=== PATIENT | male | born 1985 | race Caucasian/White ===

== ENCOUNTER 2022-12-31 20:47 | Emergency (ER) | payer OTHER ==
[2022-12-31 20:51] VITALS: BP 116/74; PULSE 82; RESP 18; TEMP 98.1; BMI 28.5
[2022-12-31] MEDS ORDERED: SODIUM CHLORIDE 1,000 ML IV STA (21:30)
[2022-12-31] MEDS ORDERED: METOCLOPRAMIDE HCL INJECTION 10 MG/2 ML VIAL IVPUSH ONE (21:35)
[2022-12-31] MEDS ORDERED: METOCLOPRAMIDE HCL INJECTION 10 MG/2 ML VIAL ONE (21:40)
[2022-12-31 21:51] LABS: BASO % 0.8 % (0-2.0); EOS % 0.8 % (0-4.5); HEMATOCRIT 42.1 % (35.4-49); HEMOGLOBIN 14.9 GM/dL (11.7-16.9); MCH 30.5 pg (25.7-33.7); MCHC 35.4 g/dl (32.0-35.9); MEAN CELL VOLUME 86.2 fl (80-96); MEAN PLT VOLUME 7.2 fl (7.5-11.1); NEUT % 53.4 % (42.8-82.8); PLATELET COUNT 189 10^3/uL (134-434); RBC 4.88 M/mm3 (4.00-5.60); RDW 12.5 % (11.9-15.9); WHITE BLOOD COUNT 3.9 K/mm3 (4.0-10.0)
[2022-12-31 22:16] LABS: CALCIUM 8.7 mg/dL (8.5-10.1)
[2022-12-31 22:17] LABS: ALBUMIN 3.8 g/dl (3.4-5.0); BLOOD UREA NITROGEN 10.3 mg/dL (7-18); MAGNESIUM 2.3 mg/dL (1.8-2.4)
[2022-12-31 22:19] LABS: CREATININE 0.7 mg/dL (0.55-1.3)
[2022-12-31 22:21] LABS: TOT PROT 7.6 g/dl (6.4-8.2)
[2022-12-31 22:24] LABS: BILIRUBIN,TOTAL 0.4 mg/dL (0.2-1)
== END 2022-12-31 22:53 | disposition home or self-care (01) ==
LOC: JER 20:47
PROC: 3E033GC Introduction of Other Therapeutic Substance into Peripheral Vein, Percutaneous Approach (ICD-10-PCS; principal; 2022-12-31)
PROC: 3E0337Z Introduction of Electrolytic and Water Balance Substance into Peripheral Vein, Percutaneous Approach (ICD-10-PCS; 2022-12-31)
DX: R42 Dizziness and giddiness (principal); R11.2 Nausea with vomiting, unspecified
CPT/HCPCS: 36415; 80053; 83690; 83735; 85025; 99284-25